=== PATIENT | male | born 1955 | race Caucasian/White ===

== ENCOUNTER 2021-07-23 08:26 | Emergency (ER) | payer SELFPAY ==
--- NOTE | 2021-07-23 09:15 | XRay Report ---
CHEST 2 VIEWS INDICATION / CLINICAL INFORMATION: Chest Pain. COMPARISON: None available. FINDINGS: SUPPORT DEVICES: None. HEART / MEDIASTINUM: No significant abnormality. LUNGS / PLEURA: No significant pulmonary or pleural abnormality. No pneumothorax. ADDITIONAL FINDINGS: No significant additional findings. IMPRESSION: 1. No acute findings. Signer Name: Anders Solano Jr, MD Signed: 07/23/2021 9:11 AM Workstation Name: [id number]
[2021-07-23 11:07] LABS: Hemoglobin 14.9 gm/dl (11.8-15.2); Mean Corpuscular HGB Conc 33 % (32-34); Mean Corpuscular Volume 94 fl (84-94); Platelet Count 241 K/mm3 (140-440); Red Blood Count 4.81 M/mm3 (3.65-5.03); Red Cell Distribution Width 14.5 % (13.2-15.2)
[2021-07-23 11:18] LABS: INR 0.87 (0.87-1.13); Partial Thromboplastin Time 28.5 Sec. (24.2-36.6)
[2021-07-23 11:31] LABS: Basophils % (Auto) 0.6 % (0.0-1.8); Eosinophils % (Auto) 0.7 % (0.0-4.3); Lymphocytes # (Auto) 1.3 K/mm3 (1.2-5.4); Monocytes # (Auto) 0.6 K/mm3 (0.0-0.8); Monocytes % (Auto) 8.7 % (0.0-7.3)
[2021-07-23 11:34] LABS: Alanine Aminotransferase 34 units/L (7-56); Albumin 4.7 g/dL (3.9-5); Blood Urea Nitrogen 12 mg/dL (9-20); Calcium 9.2 mg/dL (8.4-10.2); Hemolysis Index 6
[2021-07-23 11:39] LABS: BUN/Creatinine Ratio 20
--- NOTE | 2021-07-24 00:29 | Emergency Department Report ---
ED General Adult HPI - General Chief complaint: Chest Pain Stated complaint: SHOULDER PAIN Time Seen by Provider: 07/23/21 23:52 Source: patient Mode of arrival: Ambulatory Limitations: No Limitations - History of Present Illness Initial comments: 65-year-old male who now presents with bilateral shoulder pain radiating to his back and hands has been going on for couple of days. Patient reports picking up heavy objects at work. Patient denies any chest pain, shortness of breath or palpitation. No other modifying or associated factors reported. - Related Data Previous Rx's Medication Instructions Recorded Last Taken Type HYDROcodone/APAP 5-325 [[place] 1 - 2 each PO Q6HR PRN #14 tablet 11/13/15 Unknown Rx 5/325] Promethazine [Phenergan TAB] 25 mg PO Q6HR PRN #20 tab 11/13/15 Unknown Rx Promethazine [Phenergan] 25 mg [place] Q6HR PRN #10 supp.rect 11/13/15 Unknown Rx hydrOXYzine PAMOATE [Vistaril] 25 mg PO Q6HR PRN 5 Days #20 07/24/21 Unknown Rx capsule NS predniSONE [Deltasone] 20 mg PO QDAY 7 Days #7 tab NS 07/24/21 Unknown Rx Allergies Allergy/AdvReac Type Severity Reaction Status Date / Time No Known Allergies Allergy Unverified 11/13/15 10:37 ED Review of Systems ROS: Stated complaint: SHOULDER PAIN Other details as noted in HPI Comment: All other systems reviewed and negative Musculoskeletal: myalgia (Bilateral shoulder pain) ED Past Medical Hx - Past Medical History Previous Medical History?: No - Surgical History Past Surgical History?: No - Social History Smoking Status: Never Smoker - Medications Home Medications: Home Medications Medication Instructions Recorded Confirmed Last Taken Type HYDROcodone/APAP 5-325 [[place] 1 - 2 each PO Q6HR PRN #14 tablet 11/13/15 Unknown Rx 5/325] Promethazine [Phenergan TAB] 25 mg PO Q6HR PRN #20 tab 11/13/15 Unknown Rx Promethazine [Phenergan] 25 mg [place] Q6HR PRN #10 supp.rect 11/13/15 Unknown Rx hydrOXYzine PAMOATE [Vistaril] 25 mg PO Q6HR PRN 5 Days #20 07/24/21 Unknown Rx capsule NS predniSONE [Deltasone] 20 mg PO QDAY 7 Days #7 tab NS 07/24/21 Unknown Rx ED Physical Exam - General Limitations: No Limitations General appearance: alert, in no apparent distress - Head Head exam: Present: normal inspection - Eye Eye exam: Present: normal appearance Pupils: Present: normal accommodation - ENT ENT exam: Present: normal exam, normal orophraynx, mucous membranes moist - Neck Neck exam: Present: normal inspection, full ROM. Absent: tenderness - Respiratory Respiratory exam: Present: normal lung sounds bilaterally. Absent: respiratory distress, accessory muscle use - Cardiovascular Cardiovascular Exam: Present: regular rate, normal rhythm, normal heart sounds - GI/Abdominal GI/Abdominal exam: Present: soft, normal bowel sounds. Absent: distended, tenderness - Extremities Exam Extremities exam: Present: normal inspection, full ROM, normal capillary refill. Absent: tenderness - Back Exam Back exam: Present: normal inspection, tenderness (Bilateral superoparietal), paraspinal tenderness - Neurological Exam Neurological exam: Present: alert, oriented X3 - Psychiatric Psychiatric exam: Present: normal affect, normal mood - Skin Skin exam: Present: warm, normal color ED Course Vital Signs 07/23/21 08:30 Temperature 98.9 F Pulse Rate 66 Respiratory 64 H Rate Blood Pressure 204/75 O2 Sat by Pulse 100 Oximetry - Reevaluation(s) Reevaluation #1: 07/24/21 00:27 Here with bilateral shoulder pain that has been going on for couple of days--t his is likely muscular but because of this patient age cardiopulmonary cause cannot be completely ruled out so we will go ahead and order cardiac enzyme, chest x-ray, EKG, and routine labs that include CBC, CMP for any correctable infectious process or electrolyte abnormality. Initial EKG is reassuring and normal at a rate of 63 bpm with normal QT and no ST elevation or depression in this normal ECG. ED Medical Decision Making - Lab Data Result diagrams: 07/23/21 10:51 07/23/21 10:51 - EKG Data -: EKG Interpreted by Me EKG shows normal: sinus rhythm Rate: normal - EKG Data 07/24/21 00:29 normal at a rate of 63 bpm with normal QT and no ST elevation or depression in this normal ECG. - Radiology Data Chest x-ray with no acute pulmonary findings. Critical care attestation.: If time is entered above; I have spent that time in minutes in the direct care of this critically ill patient, excluding procedure time. ED Disposition Clinical Impression: Non-cardiac chest pain, Muscle strain Disposition: 01 HOME / SELF CARE / HOMELESS Is pt being admited?: No Does the pt Need Aspirin: No Condition: Stable Instructions: Nonspecific Chest Pain, Adult, [id number] Additional Instructions: Take your prednisone and Vistaril for your pain Call and schedule a follow up with your doctor in the next 3-5 days for progress Please do not hesitate to call or return to emergency room if your symptoms worsen Prescriptions: predniSONE [Deltasone] 20 mg PO QDAY 7 Days #7 tab NS hydrOXYzine PAMOATE [Vistaril] 25 mg PO Q6HR PRN 5 Days #20 capsule NS PRN Reason: Inflammation Referrals: PRIMARY CARE, [Primary Care Provider] - 3-5 Days Time of Disposition: 00:45
[2021-07-24 00:42] VITALS: BP 178/53
[2021-07-24 00:42] LABS: Bilirubin,Urine NEG (Negative); Blood,Urine SM (Negative); Color,Urine Yellow (Yellow); Mucus,Urine FEW /HPF; Protein,Urine <15 mg/dL mg/dL (Negative)
[2021-07-24 00:45] LABS: Amphetamine Screen,Urine PRESUMPTIVE NEGATIVE; Benzodiazepines Screen,Urine PRESUMPTIVE NEGATIVE; Cannabinoid Screen,Urine PRESUMPTIVE NEGATIVE; Cocaine Screen,Urine PRESUMPTIVE NEGATIVE; Methadone Screen,Urine PRESUMPTIVE NEGATIVE; Opiate Screen,Urine PRESUMPTIVE NEGATIVE
--- NOTE | 2021-07-24 12:23 | Electrocardiograph Report ---
[facility] Test Date: 2021-07-23 Test Time: 08:43:12 Pat Name: BOLIVAR ESCALANTE Department: Room: Gender: M Psychologist Experimental: LUZMARIA : 1955 Requested By: ED DOC Order Number: [id number] Reading MD: Lesley Noyola Measurements Intervals [place] Rate: 63 P: 55 NE: 179 QRS: 60 QRSD: 83 T: 77 QT: 391 QTc: 402 Interpretive Statements Sinus rhythm No previous ECG available for comparison Electronically Signed On 07-24-2021 12:23:09 EDT by Lesley Noyola
== END 2021-07-24 01:40 | disposition home or self-care (01) ==
LOC: ED 08:26
DX: S46.912A Strain of unspecified muscle, fascia and tendon at shoulder and upper arm level, left arm, initial encounter (principal); S46.911A Strain of unspecified muscle, fascia and tendon at shoulder and upper arm level, right arm, initial encounter; R07.89 Other chest pain; X58.XXXA Exposure to other specified factors, initial encounter; Y93.89 Activity, other specified; Y92.89 Other specified places as the place of occurrence of the external cause; Y99.8 Other external cause status
CPT/HCPCS: 36415; 71046; 80053; 80307; 81001; 83690; 84484; 85025; 85379; 85610; 85730; 93005; 99284

== ENCOUNTER 2021-07-27 22:46 | Emergency (ER) | payer SELFPAY ==
[2021-07-28] MEDS ORDERED: dexAMETHasone 4 MG/ML VIAL IM ONE (05:14)
--- NOTE | 2021-07-28 05:32 | Emergency Department Report ---
- General Chief complaint: Skin Rash Stated complaint: ALLERGIC REACTION Time Seen by Provider: 07/28/21 04:28 Source: patient Mode of arrival: Ambulatory Limitations: Language Barrier - History of Present Illness Initial comments: 65-year-old male gentleman from complaining of a pruritic rash to the right side of his neck face and ear secondary to come in contact with poison damaris a couple days ago and is continue to linger and aggravated since the onset. MD complaint: rash -: Gradual Location: head, neck Severity: mild Quality: dull Consistency: constant Improves with: none Worsens with: none Context: none Treatments Prior to Arrival: none - Related Data Previous Rx's Medication Instructions Recorded Last Taken Type HYDROcodone/APAP 5-325 [[place] 1 - 2 each PO Q6HR PRN #14 tablet 11/13/15 Unknown Rx 5/325] Promethazine [Phenergan TAB] 25 mg PO Q6HR PRN #20 tab 11/13/15 Unknown Rx Promethazine [Phenergan] 25 mg [place] Q6HR PRN #10 supp.rect 11/13/15 Unknown Rx hydrOXYzine PAMOATE [Vistaril] 25 mg PO Q6HR PRN 5 Days #20 07/24/21 Unknown Rx capsule NS predniSONE [Deltasone] 20 mg PO QDAY 7 Days #7 tab NS 07/24/21 Unknown Rx Mometasone Furoate [[place]] 1 applicatio TP QDAY #45 gram 07/28/21 Unknown Rx hydrOXYzine HCL [Atarax] 25 mg PO Q6HR PRN #20 tablet 07/28/21 Unknown Rx Allergies Allergy/AdvReac Type Severity Reaction Status Date / Time No Known Allergies Allergy Unverified 11/13/15 10:37 Abscess Boil HPI - HPI Chief Complaint: Skin Rash Stated Complaint: ALLERGIC REACTION Time Seen by Provider: 07/28/21 04:28 Home Medications: Previous Rx's Medication Instructions Recorded Last Taken Type HYDROcodone/APAP 5-325 [[place] 1 - 2 each PO Q6HR PRN #14 tablet 11/13/15 Unknown Rx 5/325] Promethazine [Phenergan TAB] 25 mg PO Q6HR PRN #20 tab 11/13/15 Unknown Rx Promethazine [Phenergan] 25 mg [place] Q6HR PRN #10 supp.rect 11/13/15 Unknown Rx hydrOXYzine PAMOATE [Vistaril] 25 mg PO Q6HR PRN 5 Days #20 07/24/21 Unknown Rx capsule NS predniSONE [Deltasone] 20 mg PO QDAY 7 Days #7 tab NS 07/24/21 Unknown Rx Mometasone Furoate [[place]] 1 applicatio TP QDAY #45 gram 07/28/21 Unknown Rx hydrOXYzine HCL [Atarax] 25 mg PO Q6HR PRN #20 tablet 07/28/21 Unknown Rx Allergies/Adverse Reactions: Allergies Allergy/AdvReac Type Severity Reaction Status Date / Time No Known Allergies Allergy Unverified 11/13/15 10:37 ED Review of Systems ROS: Stated complaint: ALLERGIC REACTION Other details as noted in HPI Comment: All other systems reviewed and negative ED Past Medical Hx - Past Medical History Previous Medical History?: Yes Hx Arthritis: Yes - Surgical History Past Surgical History?: No - Social History Smoking Status: Never Smoker Substance Use Type: None - Medications Home Medications: Home Medications Medication Instructions Recorded Confirmed Last Taken Type HYDROcodone/APAP 5-325 [[place] 1 - 2 each PO Q6HR PRN #14 tablet 11/13/15 Unknown Rx 5/325] Promethazine [Phenergan TAB] 25 mg PO Q6HR PRN #20 tab 11/13/15 Unknown Rx Promethazine [Phenergan] 25 mg [place] Q6HR PRN #10 supp.rect 11/13/15 Unknown Rx hydrOXYzine PAMOATE [Vistaril] 25 mg PO Q6HR PRN 5 Days #20 07/24/21 Unknown Rx capsule NS predniSONE [Deltasone] 20 mg PO QDAY 7 Days #7 tab NS 07/24/21 Unknown Rx Mometasone Furoate [[place]] 1 applicatio TP QDAY #45 gram 07/28/21 Unknown Rx hydrOXYzine HCL [Atarax] 25 mg PO Q6HR PRN #20 tablet 07/28/21 Unknown Rx ED Physical Exam - General Limitations: Language Barrier General appearance: alert, in no apparent distress - Head Head exam: Present: atraumatic, normocephalic - Eye Eye exam: Present: normal appearance - ENT ENT exam: Present: mucous membranes moist - Neck Neck exam: Present: normal inspection - Respiratory Respiratory exam: Present: normal lung sounds bilaterally. Absent: respiratory distress - Cardiovascular Cardiovascular Exam: Present: regular rate, normal rhythm. Absent: systolic murmur, diastolic murmur, rubs, gallop - GI/Abdominal GI/Abdominal exam: Present: soft, normal bowel sounds - Rectal Rectal exam: Present: deferred - Extremities Exam Extremities exam: Present: normal inspection - Back Exam Back exam: Present: normal inspection. Absent: CVA tenderness (R), CVA tenderness (L) - Neurological Exam Neurological exam: Present: alert, oriented X3, CN II-XII intact - Psychiatric Psychiatric exam: Present: normal affect, normal mood - Skin Skin exam: Present: warm, dry, other (Maculopapular rash to the neck and ears some weeping). Absent: intact, normal color, rash ED Course Vital Signs 07/27/21 22:50 Temperature 98.7 F Pulse Rate 67 Respiratory 16 Rate Blood Pressure 145/78 O2 Sat by Pulse 100 Oximetry Critical care attestation.: If time is entered above; I have spent that time in minutes in the direct care of this critically ill patient, excluding procedure time. ED Disposition Clinical Impression: Contact dermatitis Disposition: 01 HOME / SELF CARE / HOMELESS Is pt being admited?: No Does the pt Need Aspirin: No Condition: Stable Instructions: Poison Damaris Dermatitis, Poison [place] Dermatitis, Swimmer's Itch Prescriptions: hydrOXYzine HCL [Atarax] 25 mg PO Q6HR PRN #20 tablet PRN Reason: Itching Mometasone Furoate [[place]] 1 applicatio TP QDAY #45 gram Referrals: [facility] [Provider Group] - 3-5 Days
[2021-07-28 05:33] VITALS: BP 149/83
== END 2021-07-28 05:41 | disposition home or self-care (01) ==
LOC: ED 22:46
DX: L25.9 Unspecified contact dermatitis, unspecified cause (principal); M19.90 Unspecified osteoarthritis, unspecified site; Z79.899 Other long term (current) drug therapy
CPT/HCPCS: 96372; 99282; J1100